=== PATIENT | female | born 1950 | race Two or more races ===

== ENCOUNTER 2022-08-14 23:22 | Emergency (ER) | payer OTHER ==
[2022-08-14 23:30] VITALS: TEMP 99; BMI 27.3
[2022-08-15 01:21] VITALS: BP 148/72; PULSE 70; RESP 17
== END 2022-08-15 01:21 | disposition home or self-care (01) ==
LOC: FER 23:22
DX: S52.532A Colles' fracture of left radius, initial encounter for closed fracture (principal); W10.8XXA Fall (on) (from) other stairs and steps, initial encounter
CPT/HCPCS: 70450-TC; 72125-TC; 73110-TC-LT-FY; 73130-TC-LT-FY; 99284-25

== ENCOUNTER 2024-11-30 09:38 | Emergency (ER) | payer OTHER ==
[2024-11-30 09:53] VITALS: BP 140/82; PULSE 94; RESP 16; TEMP 98.4; BMI 28.8
== END 2024-11-30 10:29 | disposition home or self-care (01) ==
LOC: FER 09:38
DX: H66.91 Otitis media, unspecified, right ear (principal); H92.01 Otalgia, right ear
CPT/HCPCS: 99283-25